=== PATIENT | male | born 1960 | race Caucasian/White ===

== ENCOUNTER 2017-05-26 13:22 | Observation (INO) | payer OTHER ==
[~2017-05-26] VITALS: Ht 157.5 cm; Wt 100.7 kg
--- NOTE | ~2017-05-26 | CATHLAB ---
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 A PINNACLE 6FR Sheath #[id number] sheath was inserted into the RFA^. Coronary angiography was performed using coronary diagnostic catheters. The right coronary system was accessed and visualized with a JR4 GUIDE catheter. The left coronary system was accessed and visualized with a JL4 catheter. The left ventricle was accessed and visualized with a PIGTAIL catheter. Left ventricular/Aortic Valve gradient assessed via catheter pullback. Closure device was deployed with a 6 Fr MYNXGRIP 6/7F #[id number]. The patient tolerated the procedure well and there were no complications associated with the procedure. There was no hematoma. Intraoperative Conscious Sedation Sedation start time: Case end Time: 12:42 Versed 4.0 mg Fluoro Time: 11.21 minutes Dose: 1930 mGy Contrast Type and Amount: Omnipaque 150 ml [facility] [address] [place] [address] INVASIVE PROCEDURE REPORT Name: ANTOINETTE CARROLL Room #: 214-P [facility] IN ..#: [id number] Admission: 05/26/17 Attend Phys: Will Barahona Discharge: Date of : 60 Date of Service: 05/26/17 2143 Report #: [id number] Diagnostic Cath Left Main NORMAL ORIGIN AND CALIBER BIFURCATING INTO LAD AND LCX ARTERIES. 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 Diagonal 1 SMALL CALIBER VESSEL WITH MILD ( <30% ) PROXIMALLY WHICH IS NOT FLOW LIMITING. Circumflex SMALL TO MODERATE SIZE NONDOMINANT VESSEL WITH NO SIGNIFICANT LESIONS OM1 MILD PROXIMAL IRREGULARITY WITHOUT FLOW LIMITATION Right Coronary MODERATE CALIBER WITH LUMINAL IRREGULARITIES IN THE PROXIMAL SECTION. THERE IS AN ECCENTRIC 50-60% NONFLOW LIMITINF LESION IN THE MID PORTION PRIOR TO THE CRUX OF THE HEART AND ORIGIN OF A MODERATE CALIBER PDA. R PDA MILD PROXIMAL LESION NOTED RPLV TOTALLY OCCLUDED IN ITS PROXIMAL THIRD Left Ventriculography Left Ventriculography was not performed. Hemodynamics The aortic pressure is 137/85 mmHg with a mean of 90 mmHg. The left ventricular pressure is 131/15 mmHg with a mean of mmHg. The left ventricular end diastolic pressure is 30 mmHg. There was no gradient across the aortic valve upon pullback. Pullback from the left ventricle to the aorta revealed no gradient across the aortic valve. PCI Technique Lesion Anticoagulation was achieved with Angiomax. Percutaneous coronary intervention was performed on the Distal right coronary artery in the proximal third of the RPLB. The lesion stenosis prior to intervention was 100% with ABI 0 flow. A LAUNCHER 6FR JR 4 #[id number] Guide Catheter was used to engage the RCA ostium. A Luge Wire (J) .014 X 182CM #[id number] Interventional Guidewire was used to cross the lesion. BALLOON DILATION A Balloon catheter Sprinter OTW 2.0 x 15 #[id number] was inserted and inflated up to 9.00atm for 25seconds. Repeat angiography revealed the following post-dilatation results: RE ESTABLISHMENT OF ABI 1 FLOW. STENT DEPLOYMENT [facility] [address] [place] [address] INVASIVE PROCEDURE REPORT Name: ANTOINETTE CARROLL Room #: 214-P [facility] IN .#: [id number] Admission: 05/26/17 Attend Phys: Will Barahona Discharge: Date of : 60 Date of Service: 05/26/17 214 Report #: [id number] A drug-eluting stent RESOLUTE OTW 2.25 X 14 #[id number] was inserted and inflated up to 9.00atm for 25seconds. Repeat angiography revealed the following post-stent deployment results: WIDELY PATENT MODERASTE CALIBER PLVB WITH ABI 3 FLOW. Conclusion 1. CORONARY ARTERY DISEASE, SIGNIFICANT SINGLE VESSEL 2. ABNORMAL HEMODYNAMICS WITH ELEVATED LVEDP 3. SUCCESSFUL PCI/STENT OF THE PLVB OF THE DOMINANT RCA WITH A NITISH RESOLUTE 2.5 mm STENT TAKEN TO 12 JOSÉ LUIS 4 Recommendations DAP pasugrel and asa smoking cessation risk factor modification cv rehab consult Medications Administered Aspirin (any) Beta Jocelyne (any) Statin (any) Prasugrel <ELECTRONICALLY SIGNED> By: Will May MD 05/26/172142 42 42 Will May MD /INF
--- NOTE | ~2017-05-26 | EKG ---
[address] [address] ELECTROCARDIOGRAM REPORT Name: ANTOINETTE CARROLL Room #: 214-P [facility].#: [id number] Admission: 05/26/17 Attend Phys: Will May Discharge: Date of : 60 Report #: [id number] THIS REPORT FOR: //name// [facility] Test Date: 2017-05-26 Test Time: 17:39:36 Pat Name: ANTOINETTE CARROLL Department: Room: 214 P Gender: M Medical Billing Coordinator: Murali ANN : 1960 Requested By: Will May Order Number: [id number] MD: Tru Rodriguez Measurements Intervals [place] Rate: 82 P: 65 [place]: 144 QRS: 92 QRSD: 83 T: 57 QT: 364 QTc: 425 Interpretive Statements Sinus rhythm Borderline right axis deviation Borderline low voltage, extremity leads No previous ECG available for comparison Electronically Signed On 05-27-2017 8:33:09 CDT by Tru Rodriguez [email or web address] <ELECTRONICALLY SIGNED> By: Tru Rodriguez MD, [facility] 05/27/17 0833 [id number] 173 Tru Rodriguez MD, FACC /EPI
--- NOTE | ~2017-05-26 | EKG ---
[address] [address] ELECTROCARDIOGRAM REPORT Name: ANTOINETTE CARROLL Room #: 214-P [facility]..#: [id number] Admission: 05/26/17 Attend Phys: Will May Discharge: Date of : 60 Report #: [id number] THIS REPORT FOR: //name// [facility] Test Date: 2017-05-27 Test Time: 07:48:23 Pat Name: ANTOINETTE CARROLL Department: Room: 214 P Gender: M Ping Pong Table Assembler: Evy HOANG : 1960 Requested By: Will May Order Number: [id number] MD: Carlo Grant Measurements Intervals [place] Rate: 79 P: 46 AR: 139 QRS: 88 QRSD: 84 T: 64 QT: 382 QTc: 438 Interpretive Statements Sinus rhythm Borderline low voltage, extremity leads Abnormal R-wave progression, early transition No previous ECG available for comparison Electronically Signed On 05-27-2017 8:35:27 CDT by Carlo Grant [email or web address] <ELECTRONICALLY SIGNED> By: Carlo Grant MD 05/27/17 0835 7 7 Carlo Grant MD /BRAN
[2017-05-26 13:15] VITALS: BP 126/79
[2017-05-26] MEDS ORDERED: FLEXERIL PO (15:28)
[2017-05-26] MEDS ORDERED: GLIPIZIDE XL10 MG PO (15:28)
[2017-05-26] MEDS ORDERED: OMEPRAZOLE 20 M20 M1 PO (15:29)
[2017-05-26] MEDS ORDERED: OXYCODONE HCL10 MG PO (15:29)
[2017-05-26] MEDS ORDERED: MOBIC15 MG PO (15:29)
[2017-05-26 15:52] VITALS: BP 107/65
[2017-05-26 19:16] VITALS: BP 116/69
[2017-05-26 23:11] VITALS: BP 141/96
[2017-05-27 03:54] VITALS: BP 140/89
[2017-05-27 05:55] LABS: HEMATOCRIT 42.1 % (42.0-52.0); HEMOGLOBIN 14.6 gm/dL (14.0-18.0); MCH 29.6 pg (26.0-34.0); MCHC 34.6 g/dL (28.0-37.0); MCV 85.4 fL (80.0-100.0); RBC 4.93 mil/uL (4.50-6.00); RDW 12.8 % (10.5-14.5); WBC 11.7 thou/uL (4.0-11.0)
[2017-05-27 06:11] LABS: CALCIUM 9.4 mg/dL (8.5-10.1); POTASSIUM 3.8 mmol/L (3.5-5.1)
[2017-05-27 06:21] LABS: TROPONIN-I 17.07 ng/mL (<0.04-0.07)
[2017-05-27 07:20] VITALS: BP 142/97
[2017-05-27 09:40] VITALS: BP 142/97
[2017-05-27 09:42] VITALS: BP 142/97
[2017-05-27] MEDS ORDERED: ASPIR 8181 MG PO (09:50)
[2017-05-27] MEDS ORDERED: TOPROL XL25 MG PO (09:50)
[2017-05-27] MEDS ORDERED: EFFIENT10 MG PO (09:50)
[2017-05-27] MEDS ORDERED: NITROGLYCERIN0.4 MG SUBLING (10:03)
[2017-05-27 12:12] LABS: CHOLESTEROL 156 mg/dL (<200); HDL CHOLESTEROL 30 mg/dL (>40); LDL CHOLESTEROL 95 mg/dL (<100); TC:HDL 5.2 Ratio (Not establshd); TRIGLYCERIDE 156 mg/dL (<150); VLDL 31 mg/dL (<40)
[2017-05-27] MEDS ORDERED: CRESTOR10 MG PO (12:18)
== END 2017-05-27 16:00 | disposition home or self-care (01) ==
LOC: CATH 13:22 → 2N 13:23
PROVIDERS: Internal Medicine; Nurse Practitioner Gerontology
DX: I21.4 Non-ST elevation (NSTEMI) myocardial infarction (principal); I25.10 Atherosclerotic heart disease of native coronary artery without angina pectoris; E11.9 Type 2 diabetes mellitus without complications; E78.5 Hyperlipidemia, unspecified; F17.210 Nicotine dependence, cigarettes, uncomplicated; Z79.899 Other long term (current) drug therapy